=== PATIENT | male | born 1950 | race Two or more races ===

== ENCOUNTER 2023-11-19 10:52 | Emergency (ER) | payer OTHER, MEDICAID ==
[~2023-11-19] VITALS: Ht 167.6 cm; Wt 61.6 kg
[2023-11-19 13:26] VITALS: BP 123/80; PULSE 86; RESP 18; TEMP 97.9; O2SAT 97
[2023-11-19] MEDS ORDERED: BACDST PO (14:12)
== END 2023-11-19 14:23 | disposition home or self-care (01) ==
LOC: ER 10:52
DX: T83.9XXA Unspecified complication of genitourinary prosthetic device, implant and graft, initial encounter (principal); N39.0 Urinary tract infection, site not specified
CPT/HCPCS: 51702